=== PATIENT | male | born 1965 | race Two or more races ===

== ENCOUNTER 2023-05-24 16:54 | Inpatient (IN) | payer OTHER ==
[2023-05-24] MEDS ORDERED: MAG HYDROX/AL HYDROX/SIMETH 30 ML UNIT-DOSE CUP PO PRN (20:55)
[2023-05-24] MEDS ORDERED: NALOXONE HCL (KLOXXADO) 8 MG SPRAY NS PRN (20:55)
[2023-05-24] MEDS ORDERED: DICYCLOMINE HCL 10 MG CAPSULE PO PRN (20:55)
[2023-05-24] MEDS ORDERED: ONDANSETRON *ODT* 4 MG TABLET SL PRN (20:55)
[2023-05-24] MEDS ORDERED: BISMUTH SUBSALICYLATE 524 MG/30 ML PO PRN (20:55)
[2023-05-24] MEDS ORDERED: POLYETHYLENE GLYCOL (HEALTHYLAX) 3350 17 GM PACKET PO PRN (20:55)
[2023-05-24] MEDS ORDERED: guaiFENesin 600 MG TABLET.ER (FP) PO PRN (20:55)
[2023-05-24] MEDS ORDERED: BENZONATATE 200 MG CAPSULE PO PRN (20:55)
[2023-05-24] MEDS ORDERED: LOPERAMIDE HCL 2 MG CAPSULE PO PRN (20:55)
[2023-05-24] MEDS ORDERED: IBUPROFEN 400 MG TABLET (FP) PO PRN (20:55)
[2023-05-24] MEDS ORDERED: MAGNESIUM HYDROX 2400MG/30ML ORAL SUSPENSION 30 ML CUP PO PRN (20:55)
[2023-05-24] MEDS ORDERED: BENZOCAINE/MENTHOL (CHLORASEPTIC ) LOZENGE MM PRN (20:55)
[2023-05-24] MEDS ORDERED: NALOXONE HCL 0.4 MG/ML VIAL IM PRN (20:55)
[2023-05-24] MEDS ORDERED: ACETAMINOPHEN 325 MG TABLET (FP) PO PRN (20:55)
[2023-05-24] MEDS: P-EPHED 60MG/TRIPROLIDI 2.5MG TABLET PO PRN (23:10)
[2023-05-24] MEDS: MELATONIN 5 MG TABLETS PO SCH (23:33)
[2023-05-24] MEDS: THIAMINE HCL 100 MG TABLET (FP) PO SCH (23:33)
[2023-05-25] MEDS: PRENATAL VITAMINS W/ FOLIC ACID TABLET (FP) PO SCH (09:38)
[2023-05-25] MEDS: FLUTICASONE PROP 0.05% 16 GM NASAL SPRAY NS SCH (09:38)
[2023-05-25 11:36] LABS: HEMATOCRIT 40.1 % (35.4-49); HEMOGLOBIN 13.4 GM/dL (11.7-16.9); MCH 28.1 pg (25.7-33.7); MCHC 33.3 g/dl (32.0-35.9); MEAN CELL VOLUME 84.4 fl (80-96); MEAN PLT VOLUME 6.9 fl (7.5-11.1); PLATELET COUNT 236 10^3/uL (134-434); RBC 4.76 M/mm3 (4.00-5.60); RDW 13.9 % (11.9-15.9); WHITE BLOOD COUNT 7.7 K/mm3 (4.0-10.0)
[2023-05-25 12:20] LABS: POTASSIUM 4.8 mmol/L (3.5-5.1)
[2023-05-25 12:32] LABS: CALCIUM 9.2 mg/dL (8.5-10.1)
[2023-05-25 12:33] LABS: ALBUMIN 3.5 g/dl (3.4-5.0); BLOOD UREA NITROGEN 21.6 mg/dL (7-18)
[2023-05-25 12:36] LABS: CREATININE 1.2 mg/dL (0.55-1.3)
[2023-05-25 12:38] LABS: TOT PROT 6.4 g/dl (6.4-8.2)
[2023-05-25] MEDS: METHOCARBAMOL 500 MG TABLET PO PRN (22:30)
[2023-05-26] MEDS: methaDONE HCL 10 MG TABLET (FOR DETOX USE ONLY) PO ONE (09:41)
[2023-05-26] MEDS: IBUPROFEN 600 MG TABLET (FP) PO PRN (10:19)
[2023-05-26] MEDS ORDERED: ALBUTEROL SO4 HFA INHALER IH PRN (14:27)
[2023-05-26] MEDS: BUDESONIDE/FORMETEROL FUMARATE 80/4.5 mcg INHALER IH SCH (22:04)
[2023-05-26] MEDS: cloNIDine HCL 0.1 MG TABLET PO PRN (23:04)
[2023-05-27] MEDS: cloNIDine HCL 0.1 MG TABLET PO PRN (18:08)
[2023-05-28] MEDS: methaDONE HCL 10 MG TABLET (FOR DETOX USE ONLY) PO ONE (09:09)
[2023-05-28] MEDS: hydrOXYzine PAMOATE 25 MG CAPSULE (FP) PO PRN (23:37)
[2023-05-29 07:27] VITALS: RESP 16
[2023-05-29 09:46] VITALS: BP 120/68; PULSE 69; TEMP 97.6
== END 2023-05-29 09:48 | disposition home or self-care (01) | DRG 773 ==
LOC: YASAS 16:54 → Y6N 21:09
PROVIDERS: ADMIT Allergy & Immunology; ATTEND Surgery
PROC: HZ2ZZZZ Detoxification Services for Substance Abuse Treatment (ICD-10-PCS; principal; 2023-05-24)
DX: F11.23 Opioid dependence with withdrawal (principal); J45.20 Mild intermittent asthma, uncomplicated; M54.50 Low back pain, unspecified; G89.29 Other chronic pain
CPT/HCPCS: 36415; 80053; 85027; 86780; 93005; 93010